=== PATIENT | male | born 1935 | race American Indian/Alaskan Native ===

== ENCOUNTER 2017-08-02 11:15 | Day surgery (SDC) | payer MEDICARE ==
[~2017-08-02 11:15] MED LIST: IOPIDINE ONE; MYDRIACYL ONE; NEOFRIN ONE
[2017-08-02] MEDS ORDERED: MYDRIACYL OD ONE (11:42)
[2017-08-02] MEDS ORDERED: IOPIDINE OD ONE ×2 (11:42→12:56)
[2017-08-02] MEDS ORDERED: NEOFRIN OD ONE (11:42)
[2017-08-02 12:53] VITALS: BP 135/80
== END 2017-08-02 12:57 | disposition home or self-care (01) ==
LOC: OR 11:15
PROVIDERS: ATTEND Specialist
DX: H26.491 Other secondary cataract, right eye (principal); M19.90 Unspecified osteoarthritis, unspecified site; Z85.46 Personal history of malignant neoplasm of prostate; Z92.3 Personal history of irradiation

== ENCOUNTER 2017-08-09 11:00 | Day surgery (SDC) | payer MEDICARE ==
[2017-08-09] MEDS ORDERED: IOPIDINE OS ONE (11:44)
[2017-08-09] MEDS ORDERED: NEOFRIN OS ONE (11:44)
[2017-08-09] MEDS ORDERED: MYDRIACYL OS ONE (11:44)
[2017-08-09 15:10] VITALS: BP 120/80
== END 2017-08-09 11:01 | disposition home or self-care (01) ==
LOC: OR 11:00
PROVIDERS: ATTEND Specialist
DX: H26.492 Other secondary cataract, left eye (principal); M19.90 Unspecified osteoarthritis, unspecified site; Z85.46 Personal history of malignant neoplasm of prostate